=== PATIENT | male | born 1940 | race Caucasian/White ===

== ENCOUNTER 2017-02-13 05:35 | Emergency (ER) | payer MEDICARE ==
[~2017-02-13] VITALS: Ht 160 cm; Wt 62.6 kg
[~2017-02-13 05:35] MED LIST: ANTIVERT/2525 MG PO; ANUSOL-HC25 MG RC; ASPIR LOW81 MG PO; CILOSTAZOL100 MG PO; DILTIAZEM CD240 MG PO; LISINOPRIL/HCTZ1 TA4 PO; OXYCODONE5 M1 PO; PRAVACHOL40 MG PO; PRILOSEC20 MG PO; VOLTAREN50 M1 PO
[2017-02-13] MEDS ORDERED: LIPITOR20 MG PO (05:58)
[2017-02-13] MEDS ORDERED: Clopidogrel75 MG PO (05:59)
[2017-02-13] MEDS ORDERED: HYDROCHLOROTHIA25 M1 PO (06:00)
[2017-02-13] MEDS ORDERED: COZAAR100 MG PO (06:00)
[2017-02-13] MEDS ORDERED: LOPRESSOR50 M1 PO (06:02)
[2017-02-13] MEDS ORDERED: NICOTINE POLACRI2 MG PO (06:03)
[2017-02-13 06:26] LABS: BASO # 0.1 10*3/uL (0.0-0.1); BASO % 0.5 % (0.0-1.0); EOS # 0.3 10*3/uL (0.0-0.4); EOS % 3.2 % (1.0-4.0); HEMATOCRIT 41.5 % (42.0-52.0); HEMOGLOBIN 13.9 g/dl (14.0-18.0); LYMPH # 1.8 10*3/uL (1.3-4.4); LYMPH % 18.7 % (27.0-41.0); MEAN CORPUSCULAR HGB 31.2 pg (27.0-31.0); MEAN CORPUSCULAR HGB CONC 33.5 g/dl (33.0-37.0); MEAN PLATELET VOLUME 9.5 fl (9.6-12.3); MONO % 9.7 % (3.0-9.0); NEUT # 6.6 10*3/uL (2.3-7.9); NEUT % 67.6 % (47.0-73.0); PLATELET COUNT AUTOMATED 294 10*3/uL (130-400); RED BLOOD COUNT 4.46 10*6/uL (4.50-5.90); RED CELL DISTRI WIDTH 13.2 % (0-14.5); WHITE BLOOD COUNT 9.8 10*3/uL (4.8-10.8)
[2017-02-13 06:43] LABS: ALKALINE PHOSPHATASE 65 U/L (45-117); BILIRUBIN, TOTAL 0.5 mg/dl (0.2-1.0); BUN 26 mg/dl (7-24); CARBON DIOXIDE 26 mmol/L (21-32); CHLORIDE 100 mmol/L (98-107); EST GLOM FILT AFRICAN AMERICAN > 60 ml/min; GLUCOSE 98 mg/dL (65-99); POTASSIUM 3.6 mmol/L (3.5-5.1); SGOT/AST 24 IU/L (3-35); SGPT/ALT 20 U/L (12-78); SODIUM 135 mmol/L (136-145); TOTAL PROTEIN 6.8 gm/dL (6.4-8.2)
== END 2017-02-13 07:29 | disposition home or self-care (01) ==
LOC: ED 05:35
PROVIDERS: Emergency Medicine
DX: R19.09 Other intra-abdominal and pelvic swelling, mass and lump (principal); F17.200 Nicotine dependence, unspecified, uncomplicated; Z98.890 Other specified postprocedural states; Z79.82 Long term (current) use of aspirin; Z79.899 Other long term (current) drug therapy; Z88.1 Allergy status to other antibiotic agents

== ENCOUNTER 2017-03-02 15:14 | Emergency (ER) | payer MEDICARE, OTHER ==
[~2017-03-02] VITALS: Ht 160 cm; Wt 62.6 kg
[~2017-03-02 15:14] MED LIST changes: +COZAAR100 MG PO; +Clopidogrel75 MG PO; +HYDROCHLOROTHIA25 M1 PO; +LIPITOR20 MG PO; +LOPRESSOR50 M1 PO; +NICOTINE POLACRI2 MG PO; +PREDNISONE20 M1 PO; +VIBRAMYCIN100 MG PO
[2017-03-02 15:39] LABS: BASO % 0.1 % (0.0-1.0); HEMATOCRIT 44.2 % (42.0-52.0); HEMOGLOBIN 14.5 g/dl (14.0-18.0); LYMPH # 1.3 10*3/uL (1.3-4.4); LYMPH % 14.9 % (27.0-41.0); MEAN CELL VOLUME 93.6 fl (80.0-94.0); MEAN CORPUSCULAR HGB 30.7 pg (27.0-31.0); MEAN CORPUSCULAR HGB CONC 32.8 g/dl (33.0-37.0); MEAN PLATELET VOLUME 9.8 fl (9.6-12.3); MONO # 0.5 10*3/uL (0.1-1.0); MONO % 5.6 % (3.0-9.0); NEUT # 6.8 10*3/uL (2.3-7.9); NEUT % 78.9 % (47.0-73.0); PLATELET COUNT AUTOMATED 328 10*3/uL (130-400); RED BLOOD COUNT 4.72 10*6/uL (4.50-5.90); RED CELL DISTRI WIDTH 13.6 % (0-14.5); WHITE BLOOD COUNT 8.6 10*3/uL (4.8-10.8)
[2017-03-02 15:59] LABS: ALBUMIN 3.6 gm/dl (3.1-4.5); ALKALINE PHOSPHATASE 83 U/L (45-117); BILIRUBIN, TOTAL 0.6 mg/dl (0.2-1.0); BUN 30 mg/dl (7-24); CARBON DIOXIDE 24 mmol/L (21-32); CHLORIDE 104 mmol/L (98-107); EST GLOM FILT AFRICAN AMERICAN > 60 ml/min; GLUCOSE 103 mg/dL (65-99); SGOT/AST 51 IU/L (3-35); SGPT/ALT 108 U/L (12-78); SODIUM 138 mmol/L (136-145); TOTAL PROTEIN 8.1 gm/dL (6.4-8.2); TROPONIN I 0.017 ng/ml (<0.045)
== END 2017-03-02 16:26 | disposition home or self-care (01) ==
LOC: ED 15:14
PROVIDERS: Nurse Practitioner Family
DX: J20.9 Acute bronchitis, unspecified (principal); R03.0 Elevated blood-pressure reading, without diagnosis of hypertension; F17.200 Nicotine dependence, unspecified, uncomplicated; Z88.1 Allergy status to other antibiotic agents; Z88.6 Allergy status to analgesic agent; Z88.7 Allergy status to serum and vaccine; Z79.899 Other long term (current) drug therapy

== ENCOUNTER 2017-04-15 15:50 | Inpatient (IN) | payer OTHER ==
[~2017-04-15] VITALS: Ht 160 cm; Wt 63.5 kg
--- NOTE | ~2017-04-15 | CON ---
[place], [place] REPORT OF CONSULTATION NAME: KEVYN VERAS [facility] #: [id number] UNIT #: [id number] ROOM: 528 DOCTOR: ARELY QUINN MD BIRTHDATE: [birth year] DOS: 04/16/2017 REQUESTING PHYSICIAN: Dr. Chavez. REASON FOR CONSULTATION: Chest pain, unstable angina. ASSESSMENT: 1. Current presentation with recurrent classic complaint of chest pain, angina, radiating to both neck and jaw, bilateral shoulders. 2. New, further extension of pain to both arms and rest. 3. Recent PTCA stent placement at the [facility] in March. 4. Failed attempt for intervention in February prior to that. 5. Hypertension. 6. Hyperlipidemia. 7. Active tobacco abuse. 8. Possible prediabetic status. 9. Inability to tolerate statins. PLAN: 1. Cycle cardiac enzymes. 2. Keep the patient n.p.o. for possible intervention and cardiac catheterization at the [facility]. 3. Enteric-coated aspirin. 4. Increase Lopressor to 100 mg p.o. b.i.d. 5. Imdur 60 mg once a day. 6. Lovenox 1 mg/kg subQ b.i.d. 7. Call for any change in symptoms. HISTORY AND PHYSICAL: The patient is a pleasant 77-year-old gentleman unknown to our practice, was referred by ____ for evaluation of complaint of chest pain apparently started yesterday while resting. Pain initially started with a tightness in the neck and jaw then suddenly has significant heaviness, tightness, it did reach almost 8/10, did radiate to both shoulders. The patient has a subsequent episode which was similar intensity, but it was aborted by nitroglycerin. The patient after presenting to the hospital while resting in bed also this morning, started having similar complaint. At this time, again it is 8/10, but there is further extension of the pain and heaviness, tightness, radiation to both arms which he did not have before. The patient, as noted above, had a failed attempt for intervention in [facility] in February initially. The patient apparently was brought back in March with subsequent few stents were placed and no details available to me at this time. The patient is active, has been doing relatively well until yesterday. He has few episodes off and on that did respond to nitroglycerin, but recently, there was significant increase in intensity and frequency. Never had any symptomatic palpitation or any associated dizziness, lightheadedness or near syncope. He sleeps on one pillow with no reported PND, orthopnea, or pedal edema. No snoring reported. No fever, no chills, no night sweats, maintained good appetite, no weight loss. PAST MEDICAL HISTORY: As detailed in my assessment. [place], [place] REPORT OF CONSULTATION NAME: KEVYN VERAS UNIT #: [id number] ROOM: 528 DOCTOR: ARLEY QUINN MD BIRTHDATE: [birth year] SOCIAL HISTORY: The patient continued to smoke, has been doing this for the past 65 years. No heavy alcohol or illicit drug abuse. FAMILY HISTORY: Both parents are , with some heart problem, but quite late in life. His brother had some heart problem, patient is not sure but he is slightly older than him. CURRENT MEDICATIONS: Cozaar, hydrochlorothiazide, Plavix, aspirin, Protonix, Solu-Medrol, Restoril, Zofran. ALLERGIES: The patient is allergic to HYDROCODEINE, CIPRO, PRAVACHOL, TERAZOSIN, INFLUENZA VIRUS. REVIEW OF SYSTEMS: Currently, the patient denies any headache, diplopia or blurry vision. No fever, no chills, no night sweats. No abdominal pain, no bright red blood per rectum. No tarry stools. The patient admits to joint pain, but no muscular pain. No anxiety or depression. No polyuria, no polydipsia, no skin rash. Review of all other systems has been negative. PHYSICAL EXAMINATION: GENERAL: The patient is alert, oriented x 3, quite pleasant. The patient is sitting up in bed in no apparent distress, significant improvement after Lopressor and Imdur were given to the patient. VITAL SIGNS: Blood pressure 152/66, heart rate 62, respiratory rate of 15, temperature of 98. HEENT: Extraocular muscles intact. Pupils equal, round, reactive to light. Conjunctivae: No pallor. Throat: No petechiae. NECK: Good upstroke. Unable to appreciate any bruit, no lymphadenopathy, no thyromegaly. HEART: S1, S2. There is faint holosystolic murmur left upper sternal border. A faint S4 gallop. No rub, no sternal heave. CHEST AND BACK: No deformities. LUNGS: Decreased air movement, but no keren wheezing or rales. ABDOMEN: Soft, nontender, present bowel sounds, no masses, no bruits. LOWER EXTREMITIES: There is no edema with faint distal pulses. NEUROLOGIC: Grossly nonfocal. SKIN: No significant rash. LABORATORY DATA: White count 5.1, hemoglobin 13.6. Potassium 4.4. GFR more than 60% and glucose 158 to 142, hemoglobin A1c is 5.7. Normal liver function tests. CK-MB is 4.7. CK is 252. Troponin less than 0.015. Normal thyroid function test. [place], [place] REPORT OF CONSULTATION NAME: KEVYN VERAS UNIT #: [id number] ROOM: 52 DOCTOR: ARELY QUINN MD BIRTHDATE: [birth year] ARELY QUINN MD CM:CONSTR:REPORT OF CONSULTATION 9 04/16/172048 interface
[2017-04-15 15:58] VITALS: BP 176/81
[2017-04-15 16:00] VITALS: BP 161/82
[2017-04-15 16:19] LABS: BASO # 0.1 10*3/uL (0.0-0.1); BASO % 0.6 % (0.0-1.0); EOS # 0.2 10*3/uL (0.0-0.4); EOS % 2.5 % (1.0-4.0); HEMATOCRIT 42.4 % (42.0-52.0); HEMOGLOBIN 13.7 g/dl (14.0-18.0); LYMPH # 1.8 10*3/uL (1.3-4.4); LYMPH % 22.5 % (27.0-41.0); MEAN CELL VOLUME 95.1 fl (80.0-94.0); MEAN CORPUSCULAR HGB 30.7 pg (27.0-31.0); MEAN CORPUSCULAR HGB CONC 32.3 g/dl (33.0-37.0); MEAN PLATELET VOLUME 10.2 fl (9.6-12.3); MONO # 0.9 10*3/uL (0.1-1.0); MONO % 10.6 % (3.0-9.0); NEUT # 5.1 10*3/uL (2.3-7.9); NEUT % 63.6 % (47.0-73.0); PLATELET COUNT AUTOMATED 256 10*3/uL (130-400); RED BLOOD COUNT 4.46 10*6/uL (4.50-5.90)
[2017-04-15 16:29] LABS: PROTHROMBIN TIME 10.1 SECONDS (9.0-12.4)
[2017-04-15 16:30] VITALS: BP 188/81
[2017-04-15 16:38] LABS: ALBUMIN 3.3 gm/dl (3.1-4.5); ALKALINE PHOSPHATASE 64 U/L (45-117); BILIRUBIN, TOTAL 0.4 mg/dl (0.2-1.0); BUN 33 mg/dl (7-24); CARBON DIOXIDE 22 mmol/L (21-32); CHLORIDE 105 mmol/L (98-107); CPK 299 U/L (39-308); EST GLOM FILT AFRICAN AMERICAN > 60 ml/min; GLUCOSE 93 mg/dL (65-99); MAGNESIUM 1.9 mg/dL (1.5-2.1); POTASSIUM 4.3 mmol/L (3.5-5.1); SGOT/AST 22 IU/L (3-35); SGPT/ALT 15 U/L (12-78); SODIUM 134 mmol/L (136-145); TOTAL PROTEIN 7.1 gm/dL (6.4-8.2)
[2017-04-15 16:42] LABS: C-REACTIVE PROTEIN < 0.29 MG/DL (0-0.3)
[2017-04-15 16:46] LABS: CKMB 5.6 ng/ml (0.5-3.6); TROPONIN I < 0.015 ng/ml (<0.045)
[2017-04-15 17:42] VITALS: BP 122/81
[2017-04-15 19:10] VITALS: BP 157/98
[2017-04-15 19:45] VITALS: BP 134/68
[2017-04-16] VITALS: BP 152/66
[2017-04-16 00:23] LABS: CKMB 4.4 ng/ml (0.5-3.6); CPK 279 U/L (39-308)
[2017-04-16 00:25] LABS: TROPONIN I < 0.015 ng/ml (<0.045)
[2017-04-16 06:11] LABS: BASO % 0.2 % (0.0-1.0); HEMATOCRIT 42.4 % (42.0-52.0); HEMOGLOBIN 13.6 g/dl (14.0-18.0); LYMPH # 0.7 10*3/uL (1.3-4.4); LYMPH % 13.1 % (27.0-41.0); MEAN CORPUSCULAR HGB 30.2 pg (27.0-31.0); MEAN CORPUSCULAR HGB CONC 32.1 g/dl (33.0-37.0); MEAN PLATELET VOLUME 10.3 fl (9.6-12.3); MONO # 0.1 10*3/uL (0.1-1.0); MONO % 1.6 % (3.0-9.0); NEUT # 4.3 10*3/uL (2.3-7.9); NEUT % 84.7 % (47.0-73.0); PLATELET COUNT AUTOMATED 265 10*3/uL (130-400); RED BLOOD COUNT 4.51 10*6/uL (4.50-5.90); RED CELL DISTRI WIDTH 13.8 % (0-14.5); WHITE BLOOD COUNT 5.1 10*3/uL (4.8-10.8)
[2017-04-16 06:22] LABS: ALBUMIN 3.1 gm/dl (3.1-4.5); ALKALINE PHOSPHATASE 67 U/L (45-117); BILIRUBIN, TOTAL 0.3 mg/dl (0.2-1.0); BUN 30 mg/dl (7-24); CARBON DIOXIDE 26 mmol/L (21-32); CHLORIDE 106 mmol/L (98-107); EST GLOM FILT AFRICAN AMERICAN > 60 ml/min; FREE T4 1.03 ng/dl (0.76-1.46); GLUCOSE 142 mg/dL (65-99); MAGNESIUM 2.1 mg/dL (1.5-2.1); PHOSPHOROUS 3.1 mg/dL (2.5-4.9); POTASSIUM 4.4 mmol/L (3.5-5.1); SGOT/AST 20 IU/L (3-35); SGPT/ALT 16 U/L (12-78); SODIUM 139 mmol/L (136-145)
[2017-04-16 06:39] LABS: PROTHROMBIN TIME 10.1 SECONDS (9.0-12.4)
[2017-04-16 07:52] LABS: FOLIC ACID 10.72 ng/mL (>5.38); VITAMIN D, 25-HYDROXY 34.3 ng/mL (30-100)
[2017-04-16 08:00] VITALS: BP 210/100
[2017-04-16 08:15] LABS: HEMOGLOBIN A1c 5.7 % (4.8-5.6)
[2017-04-16 08:37] LABS: CKMB 4.7 ng/ml (0.5-3.6); CPK 252 U/L (39-308); LDH 163 U/L (87-241)
[2017-04-16 08:52] LABS: TROPONIN I < 0.015 ng/ml (<0.045)
[2017-04-16 09:05] VITALS: BP 180/88
[2017-04-16] MEDS ORDERED: ASPIRIN ADULT L81 M2 PO (09:21)
== END 2017-04-16 12:38 | disposition other institution (70) | DRG 303 ==
LOC: ED 15:50 → EDHOLD 17:45 → 5E 17:45
PROVIDERS: Emergency Medicine; Internal Medicine Cardiovascular Disease; Student in an Organized Health Care Education/Training Program
DX: I25.110 Atherosclerotic heart disease of native coronary artery with unstable angina pectoris (principal); J44.0 Chronic obstructive pulmonary disease with (acute) lower respiratory infection; E87.1 Hypo-osmolality and hyponatremia; I10 Essential (primary) hypertension; J20.9 Acute bronchitis, unspecified; K21.9 Gastro-esophageal reflux disease without esophagitis; F17.210 Nicotine dependence, cigarettes, uncomplicated; E78.5 Hyperlipidemia, unspecified; R94.4 Abnormal results of kidney function studies; Z71.6 Tobacco abuse counseling; Z95.5 Presence of coronary angioplasty implant and graft; Z88.1 Allergy status to other antibiotic agents; Z88.8 Allergy status to other drugs, medicaments and biological substances; Z79.02 Long term (current) use of antithrombotics/antiplatelets; Z79.899 Other long term (current) drug therapy

== ENCOUNTER 2017-08-09 14:40 | Inpatient (IN) | payer MEDICARE ==
[~2017-08-09] VITALS: Ht 165.1 cm; Wt 60.8 kg
--- NOTE | ~2017-08-09 | PR ---
[place], [place] PROGRESS NOTE NAME: KEVYN VERAS [facility] #: [id number] UNIT #: [id number] ROOM: 506 DOCTOR: AMA RIBEIRO MD,DEL BIRTHDATE: [birth year] DOS: 08/12/2017 SUBJECTIVE: The patient has been noted comfortable at this time. The cough has been noted with the reduction. He has expectorated a small amount of sputum, sent for culture. The patient denies any symptoms of chest pain or any abdominal pain. OBJECTIVE: VITAL SIGNS: Recorded shows the temperature noted as normal, respiratory rate 20, heart rate 63, blood pressure 144/70. Pulse oxygen saturation on room air was 98% saturation recorded. HEENT: No acute change. NECK: Supple. CARDIOVASCULAR: S1, S2 audible. LUNGS: Decreased breath sounds at the right lung base. There were no crackles. ABDOMEN: Soft, nontender. EXTREMITIES: Without edema. LABORATORY DATA: CBC this morning, hemoglobin 11.6, hematocrit of 34.6, platelet count were normal. CMP this morning, BUN 38, creatinine was normal, glucose 103. IMAGING STUDIES: The echocardiogram done this morning, 08/11/2017, results were reviewed with the patient and reported by the radiologist as left ventricle ejection fraction at 55%. Mild aortic and mitral valve regurgitation was noted. The right ventricle systolic pressure was reported as 27. I have performed the ultrasound of the chest at bedside, which does show evidence of a small pleural fluid with the lungs was moving in the imaging ____ safe for thoracentesis. IMPRESSION: Small pleural fluid, exact etiology unable to be determined, may be related to possibility of acute pneumonia as a reason. The patient has given me additional history today stating that he has been assessed by a specialist in the [facility], underwent PET scan about a year ago looking for cancer, but there was no cancer reported. 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 He will need another chest x-ray, 2-view, in about a couple of weeks to reassess the pleural fluid. If pleural fluid remains persistent, certainly investigation to be done accordingly. So far, there has not been abnormal mass, lesion or other abnormalities noted with the previous CT scans of the chest. However, the fluid may need to be sampled for more accurate determination of its reason. Other supportive therapy, plan of management and care and usual treatment and therapies. The instruction given to the patient clearly understood. The patient was noted quite knowledgeable about his illness and will be discussing these findings with his primary care physician in the [facility]. The medical record would also be obtained for my assessment by his [facility] physician. [place], [place] PROGRESS NOTE NAME: KEVYN VERAS Anil UNIT #: [id number] ROOM: [facility] DOCTOR: DEL OREILLY MD BIRTHDATE: [birth year] DEL SERRATO MD CM:KASSIE [id number] DEL RIBEIRO MD 08/12/17 1358 interface
--- NOTE | ~2017-08-09 | CON ---
[place], [place] REPORT OF CONSULTATION NAME: KEVYN VERAS [facility] #: [id number] UNIT #: [id number] ROOM: 506 DOCTOR: AMA RIBEIRO MDDEL BIRTHDATE: [birth year] DOS: 08/11/2017 CONSULTATION REQUESTED BY: Hospitalist services. REASON FOR CONSULTATION: Assess the patient for current abnormal CT scan of the chest finding and cough. HISTORY OF PRESENT ILLNESS: A 77-year-old white male patient who has been admitted to the hospital. The patient noted acutely ill for the patient for the past couple of days. The symptoms in the patient has been noted with shortness of breath, later on noted with a cough, which has been noted with some sputum expectoration. The sputum expectoration noted copious amount initially ____ the patient and then later noted reduction of the sputum with expectoration. The patient came into the hospital and was assessed in the Emergency Room on 08/10/2017. He has been admitted to the hospital for further medical management. He was also noted with lactic acidosis as well. He denies any symptoms of chest pain. Denies any symptoms of hemoptysis. The patient denies any symptoms of wheezing. REVIEW OF SYSTEMS: CONSTITUTIONAL: Fatigue and tiredness noted without any symptoms of fever or chills. EYES: Denies any burning, redness, or tenderness. EARS, NOSE, THROAT SYMPTOMS: Denies sore throat, hoarseness, otalgia, postnasal drainage or epistaxis. CARDIOVASCULAR: Denies angina pain, edema, pain of the lower extremities. GASTROINTESTINAL: Dysphagia, nausea, vomiting, diarrhea, abdominal pain, hematemesis, melena, or hematochezia. GENITOURINARY: Denies dysuria, suprapubic pain, or flank pain. MUSCULOSKELETAL: No acute joint pain, redness, or tenderness. The patient does not show any acute deformities. SKIN: No lesions or rashes. Remaining systems were reviewed with the patient, they were noted all negative. PAST MEDICAL HISTORY: 1. Reported with history of chronic obstructive pulmonary disease. 2. Hyperlipidemia. 3. Gastroesophageal reflux. 4. Essential hypertension. 5. Arthritis. 6. Coronary artery disease. PAST SURGICAL HISTORY: Reported as cardiac catheterization, coronary artery stents insertion previously. SOCIAL HISTORY: The patient stated he is , has 3 children. Smoking was noted as essentially cigarettes like cigar, less than a pack of cigarettes per day since age of [age] years old. Denies any occupation related pulmonary exposure history. [place], [place] REPORT OF CONSULTATION NAME: KEVYN VERAS UNIT #: [id number] ROOM: 506 DOCTOR: AMA RIBEIRO MD,DEL BIRTHDATE: [birth year] FAMILY HISTORY: Both parents were . The history was unknown. HOME MEDICATIONS: Reported as use of aspirin, Plavix, hydrochlorothiazide, and nicotine gum. DRUG ALLERGY HISTORY: REPORTED ALLERGY: 1. CIPROFLOXACIN. 2. HYDROCODONE. 3. FLU VACCINE. 4. PINEAPPLE. 5. PRAVASTATIN. 6. TERAZOSIN. CURRENT MEDICATIONS: Administered to the patient were noted use of; 1. IV Solu-Medrol 60 mg q.8 hours. 2. Plavix 75 mg at bedtime. 3. Propranolol 10 mg p.o. b.i.d. 4. Aspirin 81 mg p.o. daily. 5. Hydrochlorothiazide 25 mg daily. 6. Lovenox 40 mg subcutaneous daily. 7. Nicotine 4 mg q. 1 hour p.r.n. for symptoms of nicotine withdrawal use. 8. Mucinex 500 mg p.o. b.i.d. 9. DuoNeb q. 4 hours. 10. Azithromycin, Rocephin and other p.r.n. medications administered. PHYSICAL EXAMINATION: GENERAL: This is a 77-year-old male who has been currently noted to be awake and alert without any distress. Height of 5 feet 5 inches, weight of 134 pounds, BMI 22.2. VITAL SIGNS: For the patient, which has been recorded for the patient shows the temperature noted as normal, respiratory rate 17-20, heart rate 70-104, blood pressure 150/75-142/60. Pulse oxygen saturation on room air was 95% saturation recorded. HEENT: Examination shows head was atraumatic. Eyes nonicterus. NECK: Supple. CARDIOVASCULAR: S1, S2 audible. LUNGS: Mildly decreased breaths are noted in the right lower lung for the patient with occasional crackles. Scattered expiratory wheezing. ABDOMEN: Soft, nontender. Bowel sounds present. CENTRAL NERVOUS SYSTEM: Cranial nerves 2-12 intact. MUSCULOSKELETAL: No deformities. SKIN: No lesions or rashes. LABORATORY DATA: The CBC from 08/09/2017 for the patient showed white blood count 12.7, remaining CBC was essentially normal. Lactic acid 4.2 on admission. Follow up lactic acid on 08/11/2017 was 1.9. CMP of the patient of 08/09/2017, for the patient, BUN 29, creatinine normal, glucose 150. CK-MB and troponin were normal. PT/PTT yesterday was noted as normal. CBC yesterday, hemoglobin 12.7, hematocrit 38. Otherwise, normal CBC. CMP of the patient this morning, [place], [place] REPORT OF CONSULTATION NAME: KEVYN VERAS UNIT #: [id number] ROOM: 506 DO[facility] [birth year] BUN 37, creatinine normal, glucose 145. Potassium was 3.1. CBC: WBC count 10.9, hemoglobin 12.6, hematocrit 37.7, platelet count was normal. Chest x-ray of the patient that was done on admission of 08/09/2017 for the patient was noted with small pleural fluid in the lungs. The patient only seen in the lateral view. The PA view for the patient does not show any acute infiltration. CT of the chest that was ordered and completed by the primary care physician from yesterday shows evidence of COPD changes in the lungs. Small pleural fluid were noted for the patient to medium size in the right lower lung with area of associated atelectasis. IMPRESSION: 1. The patient is currently admitted to the hospital. The patient's respiratory symptoms started with the coughing and copious sputum expectoration. The current CT scan finding of the patient suggestive mostly atelectatic, right pleural fluid, etiology is not very clear for this patient at this time, possible pneumonia cannot be completely excluded. Viral etiology of the patient could be considered with the current chest x-ray finding for the patient has a CT scan of the chest. 2. History of chronic nicotine dependence. The patient with a chronic obstructive pulmonary disease, seemed to respond to treatment for acute exacerbation. 3. Mild azotemia for this patient was also noted, most likely intravascular volume depletion, acute, rule out a cardiac cause. The patient with current pleural fluid on the right side including congestive heart failure, cardiomyopathy. 4. Past history of coronary artery disease as well. PLAN OF TREATMENT: Collect the sputum for Gram stain and culture. Continue current antibiotic at this time. Reduce the Solu-Medrol. The patient has wheezing noted minimal at this time. Monitor respiratory status closely. Assess for the patient tomorrow morning for the patient with ultrasound for the patient to assess the amount of pleural fluid. If there is significant fluid noted, which is tappable, could be removed from the patient by thoracentesis if necessary. At this time, fluid was noted small for the patient to possible medium on the CT scan, and may not be noted for safe amenable to thoracentesis. All other supportive therapy, plan of management as well. Solu-Medrol dose has been decreased to 40 mg b.i.d. Continue use of the nicotine replacement therapy for the patient as well. Supportive therapy, plan of management and other care. Additional treatment changes need to be made based on progression of the illness. Thanks for allowing me to participate in the care of this patient. [place], [place] REPORT OF CONSULTATION NAME: [facility]EVYN VERAS [facility] [id number] UNIT #: [id number] ROOM: [facility] DOCTOR: DEL OREILLY MD BIRTHDATE: [birth year] DEL SERRATO MD CM:CONSTR:REPORT OF CONSULTATION 1137 08/12/17 0111 interface
--- NOTE | ~2017-08-09 | EKG ---
[place], [place] ELECTROCARDIOGRAM REPORT NAME: KEVYN VERAS UNIT #: [id number] ROOM: 506 DOCTOR: AMA RIBEIRO MD,DEL BIRTHDATE: [birth year] DOS: 08/09/2017 ELECTROCARDIOGRAM Time: 4:54 p.m. Sinus tachycardia noted. Heart rate 104 beats per minute. Incomplete right bundle-branch block was noted. 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 There were no changes of acute ischemia. Comparison to the old electrocardiogram was advised. DEL SERRATO MD CM:EKGRPT:ELECTROCARDIOGRAM REPORT 1402 1411 DEL RIBEIRO MD
[~2017-08-09 14:40] MED LIST changes: +ASPIRIN ADULT L81 M2 PO
[2017-08-09 14:46] VITALS: BP 142/67
--- NOTE | 2017-08-09 14:53 | NUR ---
PT OFF UNIT TO CT. CONDITION STABLE.
[2017-08-09] MEDS ORDERED: ROBITUSSIN DM 105 ML PO (14:59)
[2017-08-09] MEDS ORDERED: CLARITIN10 MG PO (14:59)
[2017-08-09] MEDS ORDERED: VIBRAMYCIN100 MG PO (14:59)
[2017-08-09] MEDS ORDERED: PREDNISONE10 MG PO (14:59)
[2017-08-09 16:50] VITALS: BP 148/89
[2017-08-09 17:00] LABS: BASO % 0.2 % (0.0-1.0); EOS % 0.1 % (1.0-4.0); HEMATOCRIT 44.5 % (42.0-52.0); HEMOGLOBIN 14.4 g/dl (14.0-18.0); LYMPH # 0.9 10*3/uL (1.3-4.4); LYMPH % 6.8 % (27.0-41.0); MEAN CELL VOLUME 92.3 fl (80.0-94.0); MEAN CORPUSCULAR HGB 29.9 pg (27.0-31.0); MEAN CORPUSCULAR HGB CONC 32.4 g/dl (33.0-37.0); MEAN PLATELET VOLUME 9.4 fl (9.6-12.3); MONO # 0.6 10*3/uL (0.1-1.0); NEUT # 11.1 10*3/uL (2.3-7.9); NEUT % 87.4 % (47.0-73.0); PLATELET COUNT AUTOMATED 336 10*3/uL (130-400); RED BLOOD COUNT 4.82 10*6/uL (4.50-5.90); RED CELL DISTRI WIDTH 13.8 % (0-14.5); WHITE BLOOD COUNT 12.7 10*3/uL (4.8-10.8)
[2017-08-09 17:16] LABS: ALBUMIN 3.4 gm/dl (3.1-4.5); ALKALINE PHOSPHATASE 70 U/L (45-117); BUN 29 mg/dl (7-24); CHLORIDE 99 mmol/L (98-107); CREATININE 1.07 mg/dL (0.70-1.30); POTASSIUM 4.6 mmol/L (3.5-5.1); SGOT/AST 15 IU/L (3-35); SGPT/ALT 16 U/L (12-78); SODIUM 136 mmol/L (136-145); TOTAL PROTEIN 7.7 gm/dL (6.4-8.2)
[2017-08-09 17:17] LABS: TROPONIN I < 0.015 ng/ml (<0.045)
[2017-08-09 17:42] VITALS: BP 139/79
--- NOTE | 2017-08-09 18:41 | NUR ---
A 77, admitted to , under the services of MILLIE Bahena DO with a diagnosis of ELEVATED BLOOD PRESSURE SEVERE SEPSIS AND PNEUMONITIS. Chief complaint is COLD SYMPTOMS. Patient arrived via bed from ER. Monitor applied. Initial assessment completed. Vital signs taken and recorded. MILLIE BAHENA DO notified of admission to the unit. Orders received. See assessment for past medical history, medications and allergies. Patient and/or family oriented to unit. [facility]. Clothing/patient valuable form completed. HENRI MAURICE
[2017-08-09 20:00] VITALS: BP 125/70
[2017-08-10] VITALS: BP 143/63
[2017-08-10 06:38] LABS: BASO % 0.1 % (0.0-1.0); HEMOGLOBIN 12.7 g/dl (14.0-18.0); LYMPH # 0.6 10*3/uL (1.3-4.4); LYMPH % 8.9 % (27.0-41.0); MEAN CELL VOLUME 89.8 fl (80.0-94.0); MEAN CORPUSCULAR HGB CONC 33.4 g/dl (33.0-37.0); MEAN PLATELET VOLUME 9.5 fl (9.6-12.3); MONO # 0.2 10*3/uL (0.1-1.0); MONO % 2.9 % (3.0-9.0); NEUT % 87.8 % (47.0-73.0); PLATELET COUNT AUTOMATED 287 10*3/uL (130-400); RED BLOOD COUNT 4.23 10*6/uL (4.50-5.90); RED CELL DISTRI WIDTH 13.8 % (0-14.5); WHITE BLOOD COUNT 6.8 10*3/uL (4.8-10.8)
[2017-08-10 06:46] LABS: ACT PARTIAL THROMBO TIME 27.1 SECONDS (20.8-31.5)
[2017-08-10 07:10] LABS: ALBUMIN 2.7 gm/dl (3.1-4.5); ALKALINE PHOSPHATASE 55 U/L (45-117); BUN 27 mg/dl (7-24); CHLORIDE 103 mmol/L (98-107); CHOLESTEROL 134 mg/dL (<200); CREATININE 0.78 mg/dL (0.70-1.30); FREE T4 1.11 ng/dl (0.76-1.46); HDL CHOLESTEROL 48 mg/dl (40-60); LDL CHOLESTEROL 77 mg/dL (9-159); PHOSPHOROUS 2.3 mg/dL (2.5-4.9); SGOT/AST 13 IU/L (3-35); SGPT/ALT 15 U/L (12-78); TOTAL PROTEIN 6.5 gm/dL (6.4-8.2); TRIGLYCERIDES 47 mg/dl (<150); VLDL CHOLESTEROL 9 mg/dL (6-40)
[2017-08-10 07:14] LABS: POTASSIUM 3.5 mmol/L (3.5-5.1); SODIUM 137 mmol/L (136-145); THYROID STIM HORMONE (HS) 0.488 uIU/ml (0.358-4.75)
[2017-08-10 07:31] LABS: VITAMIN D, 25-HYDROXY 33.4 ng/mL (30-100)
[2017-08-10 08:00] VITALS: BP 168/85
[2017-08-10 12:00] VITALS: BP 147/71
--- NOTE | 2017-08-10 14:30 | NUR ---
NOTIFIED OF CONSULT
--- NOTE | 2017-08-10 15:20 | NUR ---
REPORT RECIEVED FROM HENRI MAURICE RN.
--- NOTE | 2017-08-10 15:22 | NUR ---
CHART CHECK COMPLETED.
[2017-08-10 16:00] VITALS: BP 136/63
--- NOTE | 2017-08-10 17:26 | NUR ---
IV started left antecubital with #22 protective cath after 1 attempts. Site prepped with Chloroprep. Sterile dressing applied. Patient tolerated procedure well. SERENE MARTINEZ
[2017-08-10 20:00] VITALS: BP 140/57
--- NOTE | 2017-08-10 23:54 | NUR ---
IN TO SEE PT. AT THIS TIME, PT. LUNGS DIMINISHED, HRR, PT. DENIES SOB AND CP. PT. HAS NO REQUESTS AT THIS TIME. CALL LIGHT WITHIN REACH, BED IN LOWEST POSITION, WHEELS LOCKED.
[2017-08-11] VITALS: BP 142/60
[2017-08-11 06:22] LABS: ALKALINE PHOSPHATASE 59 U/L (45-117); BUN 37 mg/dl (7-24); CHLORIDE 102 mmol/L (98-107); CREATININE 0.92 mg/dL (0.70-1.30); PHOSPHOROUS 2.9 mg/dL (2.5-4.9); POTASSIUM 3.1 mmol/L (3.5-5.1); SGOT/AST 23 IU/L (3-35); SGPT/ALT 21 U/L (12-78); SODIUM 139 mmol/L (136-145); TOTAL PROTEIN 6.8 gm/dL (6.4-8.2)
[2017-08-11 06:25] LABS: BASO % 0.1 % (0.0-1.0); HEMATOCRIT 37.7 % (42.0-52.0); HEMOGLOBIN 12.6 g/dl (14.0-18.0); LYMPH % 9.6 % (27.0-41.0); MEAN CELL VOLUME 90.6 fl (80.0-94.0); MEAN CORPUSCULAR HGB 30.3 pg (27.0-31.0); MEAN CORPUSCULAR HGB CONC 33.4 g/dl (33.0-37.0); MEAN PLATELET VOLUME 9.8 fl (9.6-12.3); MONO # 0.5 10*3/uL (0.1-1.0); MONO % 4.6 % (3.0-9.0); NEUT # 9.3 10*3/uL (2.3-7.9); NEUT % 85.3 % (47.0-73.0); PLATELET COUNT AUTOMATED 354 10*3/uL (130-400); RED BLOOD COUNT 4.16 10*6/uL (4.50-5.90); RED CELL DISTRI WIDTH 13.9 % (0-14.5); WHITE BLOOD COUNT 10.9 10*3/uL (4.8-10.8)
[2017-08-11 08:00] VITALS: BP 150/75
--- NOTE | 2017-08-11 09:00 | NUR ---
Cook Supervisor in to talk to patient. Patient states lives at home alone. There are 5 steps up the front porch, 3 steps up the side porch, and 5 steps up the back porch. Physician: Dr. Rocky Ward [facility]: [facility] services: none Patient's level of ADLs: INDEPENDENT Patient has working utilities: yes DME: c-pap at Follow-up physician's appointment after d/c: will be made by hospitalist nurse director upon discharge Does patient want to access PORTAL?: no Discharge plan discussed with patient. He lives alone at home but has 3 children and a neighbor that check in on him. He is independent in his ADLs and ambulation. He uses a c-pap at bedtime. He plans on returning home upon discharge. Discussed with patient regarding transfer to [place] or to stay here at the hospital. Patient would like to speak to his son prior to making that decision. Will follow up later today. SAWYER NUGENT
--- NOTE | 2017-08-11 11:29 | NUR ---
Discussed with patient if he would like to be transferred to the [facility] or if he would like to stay here at [facility]. Patient would like to stay here at [facility]. I spoke to Janice at the [facility] and gave clinicals.
[2017-08-11 12:00] VITALS: BP 150/75
[2017-08-11 16:00] VITALS: BP 150/78
--- NOTE | 2017-08-11 21:41 | NUR ---
PATIENT RESTING IN BED CALL LIGHT IN REACH NO CO AT THIS TIME. SCHEDULED MEDICATIONS GIVEN SEE SHIFT ASSESSMENT
[2017-08-12] VITALS: BP 106/51
[2017-08-12 06:27] LABS: BASO % 0.1 % (0.0-1.0); EOS % 0.1 % (1.0-4.0); HEMATOCRIT 34.6 % (42.0-52.0); HEMOGLOBIN 11.6 g/dl (14.0-18.0); LYMPH # 1.4 10*3/uL (1.3-4.4); LYMPH % 13.6 % (27.0-41.0); MEAN CELL VOLUME 91.1 fl (80.0-94.0); MEAN CORPUSCULAR HGB 30.5 pg (27.0-31.0); MEAN CORPUSCULAR HGB CONC 33.5 g/dl (33.0-37.0); MEAN PLATELET VOLUME 9.3 fl (9.6-12.3); MONO # 1.1 10*3/uL (0.1-1.0); MONO % 10.3 % (3.0-9.0); NEUT # 7.7 10*3/uL (2.3-7.9); NEUT % 75.3 % (47.0-73.0); PLATELET COUNT AUTOMATED 330 10*3/uL (130-400); RED CELL DISTRI WIDTH 13.9 % (0-14.5); WHITE BLOOD COUNT 10.2 10*3/uL (4.8-10.8)
[2017-08-12 06:48] LABS: ALBUMIN 2.5 gm/dl (3.1-4.5); ALKALINE PHOSPHATASE 49 U/L (45-117); BUN 38 mg/dl (7-24); CHLORIDE 105 mmol/L (98-107); CREATININE 0.92 mg/dL (0.70-1.30); POTASSIUM 3.6 mmol/L (3.5-5.1); SGOT/AST 17 IU/L (3-35); SGPT/ALT 19 U/L (12-78); SODIUM 140 mmol/L (136-145); TOTAL PROTEIN 5.7 gm/dL (6.4-8.2)
[2017-08-12 08:00] VITALS: BP 144/70
--- NOTE | 2017-08-12 09:00 | NUR ---
Mobile Developer in to see patient. There are no new needs or requests at this time. When medically stable patient plans to be discharged home.
--- NOTE | 2017-08-12 09:47 | NUR ---
DR. SERRATO IN TO SEE PATIENT RE: PLAN OF CARE. PER DR. SERRATO PATIENT MAY BE DISCHARGED FROM HIS STANDPOINT AND WILL NEED A REPEAT CHEST XRAY IN 2 WEEKS TO EVALUATE FOR INCREASE IN FLUID/EFFUSION.
[2017-08-12] MEDS ORDERED: DOXYCYCLINE100 M3 PO (10:44)
[2017-08-12] MEDS ORDERED: PROPRANOLOL HCL10 MG PO (10:44)
[2017-08-12] MEDS ORDERED: PREDNISONE50 MG PO (10:44)
--- NOTE | 2017-08-12 11:52 | NUR ---
Discharge instructions reviewed with patient/family. Patient receptive and verbalizes understanding. Follow-up care arranged. Written instructions given to patient/family. PATIENT DISCHARGED TO [facility], AMBULATORY WITH , FOR TRANSPORT HOME BY PRIVATE VEHICLE. CARLEE SUAREZ
== END 2017-08-12 11:52 | disposition home or self-care (01) | DRG 871 ==
LOC: ED 14:40 → EDHOLD 17:29 → 5E 17:29
PROVIDERS: Family Medicine Adult Medicine; Hospitalist; Nurse Practitioner Family; Student in an Organized Health Care Education/Training Program; ADMIT Internal Medicine
DX: A41.9 Sepsis, unspecified organism (principal); J18.9 Pneumonia, unspecified organism; J96.01 Acute respiratory failure with hypoxia; E43 Unspecified severe protein-calorie malnutrition; I11.0 Hypertensive heart disease with heart failure; D64.9 Anemia, unspecified; J44.9 Chronic obstructive pulmonary disease, unspecified; I50.9 Heart failure, unspecified; R65.20 Severe sepsis without septic shock; K21.9 Gastro-esophageal reflux disease without esophagitis; R79.89 Other specified abnormal findings of blood chemistry; I08.3 Combined rheumatic disorders of mitral, aortic and tricuspid valves; M19.90 Unspecified osteoarthritis, unspecified site; F17.210 Nicotine dependence, cigarettes, uncomplicated; E78.2 Mixed hyperlipidemia; Z71.6 Tobacco abuse counseling; Z79.02 Long term (current) use of antithrombotics/antiplatelets; Z79.82 Long term (current) use of aspirin; Z79.899 Other long term (current) drug therapy; Z95.1 Presence of aortocoronary bypass graft; Z68.22 Body mass index [BMI] 22.0-22.9, adult; Z88.1 Allergy status to other antibiotic agents; Z88.7 Allergy status to serum and vaccine; Z88.8 Allergy status to other drugs, medicaments and biological substances; Z91.018 Allergy to other foods

== ENCOUNTER → 2018-02-20 | Outpatient (CLI) | payer MEDICARE ==
[~2018-02-20] MED LIST changes: +CLARITIN10 MG PO; +DOXYCYCLINE100 M3 PO; +PREDNISONE10 MG PO; +PREDNISONE50 MG PO; +PROPRANOLOL HCL10 MG PO; +ROBITUSSIN DM 105 ML PO
[2018-02-20 13:08] LABS: HEMATOCRIT 39.6 % (42.0-52.0); HEMOGLOBIN 12.3 g/dl (14.0-18.0); MEAN CELL VOLUME 88.4 fl (80.0-94.0); MEAN CORPUSCULAR HGB 27.5 pg (27.0-31.0); MEAN CORPUSCULAR HGB CONC 31.1 g/dl (33.0-37.0); RED BLOOD COUNT 4.48 10*6/uL (4.50-5.90); RED CELL DISTRI WIDTH 13.8 % (0-14.5)
[2018-02-20 13:36] LABS: ALBUMIN 3.2 gm/dl (3.1-4.5); ALKALINE PHOSPHATASE 72 U/L (45-117); BUN 33 mg/dl (7-24); CHLORIDE 106 mmol/L (98-107); CHOLESTEROL 130 mg/dL (<200); CREATININE 0.99 mg/dL (0.70-1.30); HDL CHOLESTEROL 41 mg/dl (40-60); LDL CHOLESTEROL 70 mg/dL (9-159); POTASSIUM 4.3 mmol/L (3.5-5.1); SGOT/AST 14 IU/L (3-35); SGPT/ALT 20 U/L (12-78); SODIUM 138 mmol/L (136-145); TOTAL PROTEIN 7.6 gm/dL (6.4-8.2); TRIGLYCERIDES 94 mg/dl (<150); VLDL CHOLESTEROL 19 mg/dL (6-40)
[2018-02-20 13:41] LABS: FREE T4 1.15 ng/dl (0.76-1.46)
== END | disposition home or self-care (01) ==
LOC: LAB 12:32
PROVIDERS: Family Medicine
DX: Z12.5 Encounter for screening for malignant neoplasm of prostate (principal); I25.10 Atherosclerotic heart disease of native coronary artery without angina pectoris; E55.9 Vitamin D deficiency, unspecified; R63.4 Abnormal weight loss; J90 Pleural effusion, not elsewhere classified

== ENCOUNTER 2018-11-10 15:31 | Inpatient (IN) | payer OTHER ==
[~2018-11-10] VITALS: Ht 165.1 cm; Wt 56.0 kg
--- NOTE | ~2018-11-10 | EKG ---
[place], [place] ELECTROCARDIOGRAM REPORT NAME: KEVYN VERAS UNIT #: [id number] ROOM: 403 DOCTOR: PAYAL DRAFT REPORT BIRTHDATE: [birth year] [facility] Test Date: 2018-11-10 Test Time: 15:38:52 Pat Name: KEVYN VERAS Department: Room: 403 Gender: M Manager Tax: Alethea Moore : 1940 Requested By: PROSPER WILSON Order Number: [id number] Reading MD: Boubacar Ramos MD Measurements Intervals [place] Rate: 77 P: 20 CT: 206 QRS: -81 QRSD: 129 T: 29 QT: 397 QTc: 450 Interpretive Statements Sinus rhythm Probable left atrial enlargement RBBB and LAFB No previous ECG available for comparison Electronically Signed On 11-13-2018 7:43:06 PST by Boubacar Ramos MD CM:EKGRPT:ELECTROCARDIOGRAM REPORT 1538 0743 PROSPER WILSON MD EPIPHBELINDA DRAFT REPORT PROSPER WILSON MD
--- NOTE | ~2018-11-10 | EKG ---
[place], [place] ELECTROCARDIOGRAM REPORT NAME: KEVYN VERAS UNIT #: [id number] ROOM: 403 DOCTOR: PAYAL DRAFT REPORT BIRTHDATE: [birth year] [facility] [place] [facility] Test Date: 2018-11-10 Test Time: 20:45:51 Pat Name: KEVYN VERAS Department: Room: 403 Gender: M Fish Seiner: Alethea Moore : 1940 Requested By: PROSPER WILSON Order Number: [id number] Reading MD: Boubacar Ramos MD Measurements Intervals [place] Rate: 76 P: 32 SD: 212 QRS: -83 QRSD: 129 T: 8 QT: 396 QTc: 446 Interpretive Statements Sinus rhythm Borderline prolonged SD interval RBBB and LAFB Minimal ST elevation, lateral leads No previous ECG available for comparison Electronically Signed On 11-13-2018 7:43:13 PST by Boubacar Ramos MD CM:EKGRPT:ELECTROCARDIOGRAM REPORT [id number] 0743 PROSPER MOE DRAFT REPORT PROSPER WILSON MD
--- NOTE | ~2018-11-10 | EKG ---
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
--- NOTE | ~2018-11-10 | CON ---
[place], [place] REPORT OF CONSULTATION NAME: KEVYN VERAS [facility] #: [id number] UNIT #: [id number] ROOM: 403 DOCTOR: DEL OREILLY MD BIRTHDATE: [birth year] DOS: 11/11/2018 PULMONARY CONSULTATION, EVALUATION AND MANAGEMENT CONSULTATION REQUESTED BY: Hospitalist service. REASON FOR CONSULTATION: REQUESTED patient hospital for possibility of malignant process with abnormal CT scan of chest and chest pain. 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 He has been admitted to the hospital. The patient was complaining of pain, intermittent describe in the anterior chest. The pain was described radiating to the left back of the right chest. Pain was noted in the mid chest area. The pain was present intermittently. The patient stated that he might think it was a heart problem, went to the ER of the [facility] in [place], [place]. The patient stated he asked them to do a chest x-ray, but it was not done; they have done some basic cardiac workup and the patient was sent home. He came back and seen his primary care physician in the [place] [facility] yesterday. He was asked to get a chest x-ray done. The patient had a chest x-ray completed, which was reported abnormal. He was admitted to the hospital for further care at this time. He denies any symptoms of acute chest pain at this time. The pain has been reported intermittent [id number] at time. The pain was described severity scale of 1-10 about 5. He denies any symptoms of hemoptysis with current symptom. Denies symptoms of wheezing. REVIEW OF SYSTEMS: CONSTITUTIONAL: Fatigue and tiredness. Denies symptoms of fever or chills reported. EYES: Denies any burning, redness, or tenderness. EARS, NOSE, THROAT SYMPTOMS: Denies sore throat, hoarseness, otalgia, postnasal drainage or epistaxis. CARDIOVASCULAR: Denies anginal pain, palpitations or edema of the lower extremity. GASTROINTESTINAL: No dysphagia, nausea, vomiting, diarrhea, abdominal pain, hematemesis, melena, hematochezia, or abnormal weight loss. SKIN: Denies lesions or rashes. GENITOURINARY: No dysuria, suprapubic pain, or hematuria. MUSCULOSKELETAL: No acute joint pain. SKIN: Add redness or deformities. CENTRAL NERVOUS SYSTEM: No dizziness, headache, diplopia, syncopal episodes or seizures. Remaining systems were reviewed, they were noted all negative. PAST MEDICAL HISTORY: 1. The patient reported with history of pleural fluid, which has been noted in 2017; probably in August. He was seen by his physician and then referred to the [facility] [place] where he underwent the VATS procedure, could not remember the month. The patient stated that he thought there was a treatment, which was [place], [place] REPORT OF CONSULTATION NAME: KEVYN VERAS UNIT #: [id number] ROOM: 403 DOCTOR: AMA RIBEIRO MD,DEL BIRTHDATE: [birth year] monitored by the [facility] previously and the biopsy was noted as no malignancy. The patient stayed at the hospice several days and then discharged home. 2. History of chronic tobacco dependence. 3. History of chronic obstructive pulmonary disease. 4. Acute coronary artery disease. 5. Essential hypertension. 6. Gastroesophageal reflux. PAST SURGICAL HISTORY: 1. Cardiac catheterization, coronary artery stents insertion for the patient in the past. 2. Right-sided thoracentesis. 3. Right VATS procedure in 2018. SOCIAL HISTORY: The patient lives at home. He is , has 3 children. History of tobacco use was noted since teenager, about a pack of cigarettes per day. He usually and currently smoking half a pack of cigarettes per day. Denies history of alcohol use or any illicit drug use. FAMILY HISTORY: Both parents and history was unknown. HOME MEDICATIONS: Listed as: 1. Aspirin. 2. Vitamin D. 3. Tramadol. 4. ProAir HFA inhaler. DRUG ALLERGY HISTORY: The patient noted: 1. CIPROFLOXACIN: 2. PRAVASTATIN. 3. TERAZOSIN. 4. HYDROCODONE. PHYSICAL EXAMINATION: GENERAL: This is an 78-year-old elderly and admitted without any acute distress at this time, noted fully awake and alert. Height of 5 feet 5 inches, weight 123 pounds, BMI 20.5. VITAL SIGNS: Normal temperature, respiratory rate 18-20, heart rate 82-92, blood pressure 186/90, on admission, currently noted 128/68, pulse oxygen saturation at rest on room air is 94% saturation. HEENT: Head was atraumatic. Eyes nonicterus. NECK: Supple. CARDIOVASCULAR: S1, S2 is audible. LUNGS: Moderate to severe reduction in the breath sounds noted on the right chest auscultation. Left lung was clear. There were no wheezing or crackles heard. ABDOMEN: Soft, flat, nontender, bowel sounds present. EXTREMITIES: Without any edema, clubbing, cyanosis. MUSCULOSKELETAL: Chronic deformity. VISIBLE SKIN: No lesions or rashes. [place], [place] REPORT OF CONSULTATION NAME: KEVYN VERAS UNIT #: [id number] ROOM: [facility] DOCTOR: AMA RIBEIRO MD,[facility] BIRTHDATE: [birth year] CENTRAL NERVOUS SYSTEM: The patient was intact. LABORATORY DATA: Assess for CBC done yesterday in the Emergency Room as CBC with normal WBC count, eosinophils of 1.6%. PT/PTT were noted normal yesterday. CMP that was done yesterday, BUN 26, creatinine normal, remaining LFTs. The patient's electrolytes and troponin normal. ProBNP was 791. Lactic acid 1.2. Other 2 sets of troponin yesterday normal. CBC this morning; WBC count 4.6, platelet count normal, hemoglobin 13.5. CMP this morning, BUN 27, creatinine was normal. PT/PTT repeated again this morning was normal. The chest showed a significant opacification of the right chest was noted with volume loss. The CT scan of the chest on 08/2017 was reviewed from the PACS image. The patient noted with moderate size right pleural fluid appeared to be free flowing at that time. The CT scan of the chest that was completed yesterday without contrast. The patient was noted circumferential pleural fluid thickening for this. Pleural fluid was noted with thickening of the pleura with evidence of a mass-like lesion was noted in the right mid lung inferomedially. Significant nodularity of the pleura was also noted as a new finding. Ascending aortic dilatation was noted at 4 cm in size with a greatest AP dimension. Cardiophrenic note was also increase of patient's size of 2.4 cm lack of the IV contrast does limit this patient for the details assessment. The mediastinal structures. IMPRESSION: The patient who has been currently admitted to the hospital noted current chest. The patient most likely due to current pneumonia, progressive intrathoracic process with possibility of malignancy to be considered first and excluded appropriately with further appropriate assessment. CURRENT FINDINGS: 1. We were not suggestive any evidence of acute pneumonia and infection. 2. The patient with history of chronic obstructive pulmonary disease without acute exacerbation. 3. Longstanding tobacco use. 4. Asymptomatic ascending aortic aneurysm 4 cm in size. 5. Lymphadenopathy noted in the cardiophrenic area, at this time significant unknown. Rule out malignant process. 6. History of essential hypertension. 7. Coronary artery disease. PLAN OF MANAGEMENT: A detailed discussion done with the patient about the further future assessment needs to be done as an outpatient. He does not require to be admitted to the hospital for this care. For further inpatient assessment. He was advised to establish appointment with his special effects specialist in the [place], [place] and get assistance if necessary to do so from his physician in [place] the [place] [facility] as well. Further workup to be started for this patient to exclude malignant process in the right hemithorax including assessment of the current finding with a PET scan and then followed by the tissue biopsy for further confirmatory diagnosis of appropriate exclusion of malignancy. Nicotine replacement patches could be used p.r.n. pain medication such as Tylenol This Cystoscopy. The pain. 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 He has understood the proper patient completely and performed for this patient. Understanding of the further assessment needed. The nursing was informed to contact patient's primary care attending for current discharge planning for this patient from this admission. If the patient would like to have any workup done for the patient as an outpatient locally certainly could be arranged through my office with office followup to be established. Thanks for allowing me to participate in the care of this patient. DEL SERRATO MD CM:CONSTR:REPORT OF CONSULTATION 1303 11/11/18 [id number] interface
[2018-11-10 15:31] VITALS: BP 186/90
[2018-11-10 15:59] LABS: BASO # 0.1 10*3/uL (0.0-0.1); BASO % 0.5 % (0.0-1.0); EOS # 0.2 10*3/uL (0.0-0.4); EOS % 1.6 % (1.0-4.0); HEMOGLOBIN 14.7 g/dl (14.0-18.0); LYMPH # 2.2 10*3/uL (1.3-4.4); LYMPH % 20.5 % (27.0-41.0); MEAN CELL VOLUME 92.8 fl (80.0-94.0); MEAN CORPUSCULAR HGB 30.3 pg (27.0-31.0); MEAN CORPUSCULAR HGB CONC 32.7 g/dl (33.0-37.0); MEAN PLATELET VOLUME 9.7 fl (9.6-12.3); MONO % 9.1 % (3.0-9.0); NEUT # 7.2 10*3/uL (2.3-7.9); NEUT % 67.9 % (47.0-73.0); PLATELET COUNT AUTOMATED 345 10*3/uL (130-400); RED BLOOD COUNT 4.85 10*6/uL (4.50-5.90); RED CELL DISTRI WIDTH 14.1 % (0-14.5); WHITE BLOOD COUNT 10.5 10*3/uL (4.8-10.8)
[2018-11-10 16:17] LABS: ACT PARTIAL THROMBO TIME 26.7 SECONDS (20.8-31.5); INTERNATIONAL NORM RATIO 0.9 (2.0-3.5)
[2018-11-10 16:23] LABS: ALBUMIN 3.3 gm/dl (3.1-4.5); ALKALINE PHOSPHATASE 78 U/L (45-117); BUN 26 mg/dl (7-24); CHLORIDE 101 mmol/L (98-107); POTASSIUM 4.1 mmol/L (3.5-5.1); SGOT/AST 23 IU/L (3-35); SGPT/ALT 24 U/L (12-78); SODIUM 137 mmol/L (136-145); TOTAL PROTEIN 8.1 gm/dL (6.4-8.2)
[2018-11-10 16:25] LABS: TROPONIN I < 0.015 ng/ml (<0.045)
[2018-11-10 16:57] VITALS: BP 184/92
[2018-11-10 17:24] VITALS: BP 192/96
[2018-11-10 18:00] VITALS: BP 125/99
[2018-11-10 18:05] VITALS: BP 184/90
[2018-11-10] MEDS ORDERED: VITAMIN D32000 UNI1 PO (19:10)
[2018-11-10] MEDS ORDERED: TRAMADOL HCL50 MG PO (19:10)
[2018-11-10] MEDS ORDERED: INHALER (19:11)
[2018-11-10 20:00] VITALS: BP 135/63
[2018-11-11] VITALS: BP 112/83
[2018-11-11 06:23] LABS: BASO % 0.2 % (0.0-1.0); HEMATOCRIT 41.8 % (42.0-52.0); HEMOGLOBIN 13.5 g/dl (14.0-18.0); LYMPH # 0.8 10*3/uL (1.3-4.4); LYMPH % 16.4 % (27.0-41.0); MEAN CELL VOLUME 92.5 fl (80.0-94.0); MEAN CORPUSCULAR HGB 29.9 pg (27.0-31.0); MEAN CORPUSCULAR HGB CONC 32.3 g/dl (33.0-37.0); MEAN PLATELET VOLUME 9.7 fl (9.6-12.3); MONO # 0.1 10*3/uL (0.1-1.0); MONO % 1.3 % (3.0-9.0); NEUT # 3.8 10*3/uL (2.3-7.9); NEUT % 81.9 % (47.0-73.0); PLATELET COUNT AUTOMATED 300 10*3/uL (130-400); RED BLOOD COUNT 4.52 10*6/uL (4.50-5.90); WHITE BLOOD COUNT 4.6 10*3/uL (4.8-10.8)
[2018-11-11 06:41] LABS: ALBUMIN 2.9 gm/dl (3.1-4.5); BUN 27 mg/dl (7-24); CHLORIDE 102 mmol/L (98-107); CREATININE 0.97 mg/dL (0.70-1.30); POTASSIUM 4.1 mmol/L (3.5-5.1); SGOT/AST 22 IU/L (3-35); SGPT/ALT 22 U/L (12-78); SODIUM 137 mmol/L (136-145); TOTAL PROTEIN 7.2 gm/dL (6.4-8.2)
[2018-11-11 06:50] LABS: ALKALINE PHOSPHATASE 67 U/L (45-117)
[2018-11-11 07:05] LABS: ACT PARTIAL THROMBO TIME 27.2 SECONDS (20.8-31.5); INTERNATIONAL NORM RATIO 0.9 (2.0-3.5)
[2018-11-11 07:32] LABS: VITAMIN D, 25-HYDROXY 58.8 ng/mL (30-100)
[2018-11-11 08:00] VITALS: BP 128/68
== END 2018-11-11 12:46 | disposition home or self-care (01) | DRG 844 ==
LOC: ED 15:31 → EDHOLD 16:39 → 4E 16:39
PROVIDERS: Emergency Medicine; Internal Medicine; ADMIT Internal Medicine
DX: C45.7 Mesothelioma of other sites (principal); E44.0 Moderate protein-calorie malnutrition; I16.0 Hypertensive urgency; J44.9 Chronic obstructive pulmonary disease, unspecified; K21.9 Gastro-esophageal reflux disease without esophagitis; E78.5 Hyperlipidemia, unspecified; R91.8 Other nonspecific abnormal finding of lung field; I25.10 Atherosclerotic heart disease of native coronary artery without angina pectoris; R59.1 Generalized enlarged lymph nodes; R73.9 Hyperglycemia, unspecified; D72.819 Decreased white blood cell count, unspecified; Z88.9 Allergy status to unspecified drugs, medicaments and biological substances; Z95.5 Presence of coronary angioplasty implant and graft; Z72.89 Other problems related to lifestyle; Z71.6 Tobacco abuse counseling; Z68.20 Body mass index [BMI] 20.0-20.9, adult